=== PATIENT | male | born 1940 | race Caucasian/White ===

== ENCOUNTER 2017-11-11 11:25 | Emergency (ER) | payer MEDICARE, OTHER ==
[~2017-11-11] VITALS: Ht 182.9 cm; Wt 108.9 kg
[~2017-11-11 11:25] MED LIST: DIGO.25 PO; GABA100 PO; GEMF600 PO; HYDCHL25 PO; HYDCOR2.5C PR; LEVSOD50 PO; LISI20 PO; METO50ER PO; NIFE30ER PO; NIFE60ER PO; Norco 5-325 Ta1 EACH PO; OXYACE5T PO; TERA5 PO; WARF1 PO; WARF4 PO; WARF5 PO; WARF6 PO
[2017-11-11] MEDS ORDERED: GABA300 PO (12:15)
[2017-11-11] MEDS ORDERED: DIGOX250 MCG PO (12:15)
[2017-11-11] MEDS ORDERED: METO50 PO (12:15)
[2017-11-11] MEDS ORDERED: Zestril40 MG (12:15)
[2017-11-11] MEDS ORDERED: POTCHL20ER PO (12:15)
[2017-11-11] MEDS ORDERED: NIFE90ER PO (12:16)
[2017-11-11 12:38] LABS: International Normalized Ratio 1.84; Prothrombin Time Results 19.5 Sec (9.7-11.5)
== END 2017-11-11 13:10 | disposition home or self-care (01) ==
LOC: ER 11:25
PROVIDERS: Emergency Medicine
DX: S00.81XA Abrasion of other part of head, initial encounter (principal); D68.9 Coagulation defect, unspecified; M25.30 Other instability, unspecified joint; Z88.0 Allergy status to penicillin; Z88.8 Allergy status to other drugs, medicaments and biological substances; Z79.899 Other long term (current) drug therapy; Z79.01 Long term (current) use of anticoagulants; I10 Essential (primary) hypertension; Z87.891 Personal history of nicotine dependence; W01.118A Fall on same level from slipping, tripping and stumbling with subsequent striking against other sharp object, initial encounter
CPT/HCPCS: 70450; 85610; 90471; 90714; 99284

== ENCOUNTER 2018-12-15 15:15 | Emergency (ER) | payer MEDICARE, OTHER ==
[~2018-12-15] VITALS: Ht 182.9 cm; Wt 107.0 kg
[~2018-12-15 15:15] MED LIST changes: +DIGOX250 MCG PO; +GABA300 PO; +METO50 PO; +NIFE90ER PO; +POTCHL20ER PO; +Zestril40 MG
[2018-12-15 15:58] LABS: BASOPHILS ABSOLUTE AUTO 0.06 K/mm3 (0.00-0.23); BASOPHILS PERCENT AUTO 1 % (0-2); EOSINOPHILS ABSOLUTE AUTO 0.21 K/mm3 (0.00-0.68); EOSINOPHILS PERCENT AUTO 3 % (0-6); Hematocrit 39.2 % (37.0-53.0); IMMATURE GRAN ABSOLUTE AUTO 0.02 K/mm3 (0.00-0.10); IMMATURE GRAN PERCENT AUTO 0 % (0-1); LYMPHOCYTES ABSOLUTE AUTO 0.93 K/mm3 (0.84-5.20); LYMPHOCYTES PERCENT AUTO 12 % (21-46); MONOCYTES ABSOLUTE AUTO 0.75 K/mm3 (0.16-1.47); MONOCYTES PERCENT AUTO 10 % (4-13); Mean Corpuscular HGB Conc 33.2 g/dL (31.5-36.5); Mean Corpuscular Volume 90 fL (80-100); Mean Platelet Volume 9.1 fL (9.1-12.4); NEUTROPHILS ABSOLUTE AUTO 5.56 K/mm3 (1.96-9.15); NEUTROPHILS PERCENT AUTO 74 % (41-73); Platelet Count 200 K/mm3 (150-400); RDW Coefficient Variation 13.9 % (11.7-14.2); RDW Standard Deviation 45.5 fL (35.1-46.3); Red Blood Cell Count 4.34 M/mm3 (4.30-5.90); White Blood Cell Count 7.53 K/mm3 (4.00-11.30)
[2018-12-15 16:22] LABS: Alanine Aminotransfer (ALT/SGP 21 U/L (12-78); Albumin, Blood 3.6 g/dL (3.4-5.0); Alk Phos 86 U/L (50-136); Anion Gap 6 mmol/L (6-16); Aspartate Aminotrans (AST/SGOT 16 U/L (12-37); Bilirubin, Total 0.7 mg/dL (0.1-1.0); Blood Urea Nitrogen 14 mg/dL (8-24); Bun/Creatinine Ratio 13.6 (12.0-20.0); CO2, Blood 29 mmol/L (21-32); Chloride, Blood 107 mmol/L (98-108); Creatinine, Blood 1.03 mg/dL (0.60-1.20); Globulin, Blood 3.5 g/dL (2.2-4.0); Glomerular Filtration Rate >60 (60-); Glucose, Blood 111 mg/dL (70-99); Potassium, Blood 3.5 mmol/L (3.5-5.5); Sodium, Blood 142 mmol/L (136-145); Total Protein, Blood 7.1 g/dL (6.4-8.2)
[2018-12-15 16:37] LABS: Digoxin (Lanoxin) 0.88 ug/mL (0.80-2.00)
[2018-12-15 16:59] LABS: International Normalized Ratio 1.88; Prothrombin Time Results 18.8 Sec (9.7-11.5)
[2018-12-15] MEDS ORDERED: Prednisone20 MG PO (18:22)
== END 2018-12-15 18:40 | disposition home or self-care (01) ==
LOC: ER 15:15
PROVIDERS: Physician Assistant
DX: S50.812A Abrasion of left forearm, initial encounter (principal); M10.9 Gout, unspecified; I10 Essential (primary) hypertension; Z88.0 Allergy status to penicillin; Z79.899 Other long term (current) drug therapy; W01.0XXA Fall on same level from slipping, tripping and stumbling without subsequent striking against object, initial encounter
CPT/HCPCS: 29125; 70450; 73070; 73120; 80053; 80162; 85025; 85610; 93005; 93010; 99284-25; J7512

== ENCOUNTER → 2019-03-31 | Outpatient (CLI) | payer MEDICARE, OTHER ==
[~2019-03-31] MED LIST changes: +Prednisone20 MG PO
== END ==
LOC: LAB SHORT 11:04 → LAB 11:04
DX: L02.212 Cutaneous abscess of back [any part, except buttock and flank] (principal)
CPT/HCPCS: 87070; 87205

== ENCOUNTER 2020-10-22 00:33 | Day surgery (SDC) | payer MEDICARE, OTHER | END 2020-10-22 22:38 | disposition home or self-care (01) | LOC: WOUND 00:33 | DX: L97.812 Non-pressure chronic ulcer of other part of right lower leg with fat layer exposed (principal); L97.822 Non-pressure chronic ulcer of other part of left lower leg with fat layer exposed; I73.9 Peripheral vascular disease, unspecified; I87.2 Venous insufficiency (chronic) (peripheral); H40.9 Unspecified glaucoma; G47.30 Sleep apnea, unspecified; I48.91 Unspecified atrial fibrillation; I10 Essential (primary) hypertension; I25.2 Old myocardial infarction; E03.9 Hypothyroidism, unspecified; G62.9 Polyneuropathy, unspecified; Z87.891 Personal history of nicotine dependence; Z88.6 Allergy status to analgesic agent; Z88.1 Allergy status to other antibiotic agents; Z88.0 Allergy status to penicillin | CPT/HCPCS: A9270; G0463 ==

== ENCOUNTER 2020-10-30 00:19 | Day surgery (SDC) | payer MEDICARE, OTHER | END 2020-10-30 23:22 | disposition home or self-care (01) | LOC: WOUND 00:19 | DX: L97.829 Non-pressure chronic ulcer of other part of left lower leg with unspecified severity (principal); L97.818 Non-pressure chronic ulcer of other part of right lower leg with other specified severity; I73.9 Peripheral vascular disease, unspecified; I87.2 Venous insufficiency (chronic) (peripheral); R60.0 Localized edema | CPT/HCPCS: A9270; G0463 ==

== ENCOUNTER 2020-11-13 00:17 | Day surgery (SDC) | payer MEDICARE, OTHER | END 2020-11-13 22:41 | disposition home or self-care (01) | LOC: WOUND 00:17 | DX: L97.812 Non-pressure chronic ulcer of other part of right lower leg with fat layer exposed (principal); L97.822 Non-pressure chronic ulcer of other part of left lower leg with fat layer exposed; I73.9 Peripheral vascular disease, unspecified; I87.2 Venous insufficiency (chronic) (peripheral); R60.0 Localized edema | CPT/HCPCS: A9270 ==

== ENCOUNTER 2020-11-16 00:48 | Day surgery (SDC) | payer MEDICARE, OTHER | END 2020-11-16 23:01 | disposition home or self-care (01) | LOC: WOUND 00:48 | DX: L97.829 Non-pressure chronic ulcer of other part of left lower leg with unspecified severity (principal); L97.818 Non-pressure chronic ulcer of other part of right lower leg with other specified severity; I73.9 Peripheral vascular disease, unspecified; I87.2 Venous insufficiency (chronic) (peripheral); R60.0 Localized edema ==

== ENCOUNTER 2020-11-20 03:27 | Day surgery (SDC) | payer MEDICARE, OTHER | END 2020-11-20 23:03 | disposition home or self-care (01) | LOC: WOUND 03:27 | DX: L97.815 Non-pressure chronic ulcer of other part of right lower leg with muscle involvement without evidence of necrosis (principal); L97.829 Non-pressure chronic ulcer of other part of left lower leg with unspecified severity; I73.9 Peripheral vascular disease, unspecified; I87.2 Venous insufficiency (chronic) (peripheral); R60.0 Localized edema | CPT/HCPCS: A9270 ==

== ENCOUNTER 2020-11-27 02:59 | Day surgery (SDC) | payer MEDICARE, OTHER | END 2020-11-27 23:02 | disposition home or self-care (01) | LOC: WOUND 02:59 | DX: L97.822 Non-pressure chronic ulcer of other part of left lower leg with fat layer exposed (principal); L97.812 Non-pressure chronic ulcer of other part of right lower leg with fat layer exposed; I73.9 Peripheral vascular disease, unspecified; I87.2 Venous insufficiency (chronic) (peripheral); R60.0 Localized edema | CPT/HCPCS: A9270 ==

== ENCOUNTER 2020-12-04 04:48 | Day surgery (SDC) | payer MEDICARE, OTHER | END 2020-12-04 23:40 | disposition home or self-care (01) | LOC: WOUND 04:48 | DX: L97.815 Non-pressure chronic ulcer of other part of right lower leg with muscle involvement without evidence of necrosis (principal); L97.825 Non-pressure chronic ulcer of other part of left lower leg with muscle involvement without evidence of necrosis; L97.822 Non-pressure chronic ulcer of other part of left lower leg with fat layer exposed; I73.9 Peripheral vascular disease, unspecified; I87.2 Venous insufficiency (chronic) (peripheral); I77.1 Stricture of artery; R60.0 Localized edema; Z99.3 Dependence on wheelchair | CPT/HCPCS: A9270 ==

== ENCOUNTER 2020-12-11 02:15 | Day surgery (SDC) | payer MEDICARE, OTHER | END 2020-12-11 22:46 | disposition home or self-care (01) | LOC: WOUND 02:15 | DX: L97.212 Non-pressure chronic ulcer of right calf with fat layer exposed (principal); L97.222 Non-pressure chronic ulcer of left calf with fat layer exposed; I73.9 Peripheral vascular disease, unspecified; I87.2 Venous insufficiency (chronic) (peripheral); R60.0 Localized edema | CPT/HCPCS: A9270 ==

== ENCOUNTER 2020-12-18 00:22 | Day surgery (SDC) | payer MEDICARE, OTHER | END 2020-12-18 22:43 | disposition home or self-care (01) | LOC: WOUND 00:22 | DX: L97.212 Non-pressure chronic ulcer of right calf with fat layer exposed (principal); L97.222 Non-pressure chronic ulcer of left calf with fat layer exposed; I73.9 Peripheral vascular disease, unspecified; I87.2 Venous insufficiency (chronic) (peripheral); R60.0 Localized edema | CPT/HCPCS: A9270 ==

== ENCOUNTER 2020-12-25 04:39 | Day surgery (SDC) | payer MEDICARE, OTHER | END 2020-12-25 22:59 | disposition home or self-care (01) | LOC: WOUND 04:39 | DX: L97.222 Non-pressure chronic ulcer of left calf with fat layer exposed (principal); L97.212 Non-pressure chronic ulcer of right calf with fat layer exposed; I73.9 Peripheral vascular disease, unspecified; I87.2 Venous insufficiency (chronic) (peripheral); R60.0 Localized edema ==

== ENCOUNTER 2021-01-01 03:37 | Day surgery (SDC) | payer MEDICARE, OTHER | END 2021-01-01 23:45 | disposition home or self-care (01) | LOC: WOUND 03:37 | DX: L97.212 Non-pressure chronic ulcer of right calf with fat layer exposed (principal); L97.222 Non-pressure chronic ulcer of left calf with fat layer exposed; I87.2 Venous insufficiency (chronic) (peripheral); I73.9 Peripheral vascular disease, unspecified; R60.0 Localized edema ==

== ENCOUNTER 2021-01-08 04:18 | Day surgery (SDC) | payer MEDICARE, OTHER | END 2021-01-08 22:46 | disposition home or self-care (01) | LOC: WOUND 04:18 | DX: L97.825 Non-pressure chronic ulcer of other part of left lower leg with muscle involvement without evidence of necrosis (principal); L97.815 Non-pressure chronic ulcer of other part of right lower leg with muscle involvement without evidence of necrosis; L97.222 Non-pressure chronic ulcer of left calf with fat layer exposed; L97.212 Non-pressure chronic ulcer of right calf with fat layer exposed; I73.9 Peripheral vascular disease, unspecified; I87.2 Venous insufficiency (chronic) (peripheral); R60.0 Localized edema ==

== ENCOUNTER 2021-01-15 00:59 | Day surgery (SDC) | payer MEDICARE, OTHER | END 2021-01-15 23:26 | disposition home or self-care (01) | LOC: WOUND 00:59 | DX: L97.212 Non-pressure chronic ulcer of right calf with fat layer exposed (principal); L97.222 Non-pressure chronic ulcer of left calf with fat layer exposed; I73.9 Peripheral vascular disease, unspecified; I87.2 Venous insufficiency (chronic) (peripheral); R60.0 Localized edema | CPT/HCPCS: A9270 ==

== ENCOUNTER 2021-01-22 04:10 | Day surgery (SDC) | payer MEDICARE, OTHER | END 2021-01-22 23:51 | disposition home or self-care (01) | LOC: WOUND 04:10 | DX: L97.212 Non-pressure chronic ulcer of right calf with fat layer exposed (principal); L97.222 Non-pressure chronic ulcer of left calf with fat layer exposed; I73.9 Peripheral vascular disease, unspecified; I87.2 Venous insufficiency (chronic) (peripheral); R60.0 Localized edema ==

== ENCOUNTER 2021-01-30 01:29 | Day surgery (SDC) | payer MEDICARE, OTHER ==
[~2021-01-30 01:29] MED LIST changes: -GABA300 PO; -HYDCHL25 PO; -LEVSOD50 PO; -METO50 PO; -NIFE90ER PO; -POTCHL20ER PO; -TERA5 PO; -Zestril40 MG
== END 2021-01-30 22:41 | disposition home or self-care (01) ==
LOC: WOUND 01:29
DX: L97.212 Non-pressure chronic ulcer of right calf with fat layer exposed (principal); L97.222 Non-pressure chronic ulcer of left calf with fat layer exposed; I73.9 Peripheral vascular disease, unspecified; I87.2 Venous insufficiency (chronic) (peripheral); R60.0 Localized edema
CPT/HCPCS: A9270

== ENCOUNTER 2021-02-07 12:12 | Inpatient (IN) | payer MEDICARE, OTHER ==
[~2021-02-07] VITALS: Ht 180.3 cm; Wt 102.5 kg
[2021-02-07 13:20] LABS: BASOPHILS ABSOLUTE AUTO 0.05 K/mm3 (0.00-0.23); BASOPHILS PERCENT AUTO 2 % (0-2); EOSINOPHILS ABSOLUTE AUTO 0.09 K/mm3 (0.00-0.68); EOSINOPHILS PERCENT AUTO 3 % (0-6); Hematocrit 33.1 % (37.0-53.0); Hemoglobin 9.9 g/dL (13.5-17.5); IMMATURE GRAN PERCENT AUTO 0 % (0-1); LYMPHOCYTES ABSOLUTE AUTO 0.58 K/mm3 (0.84-5.20); LYMPHOCYTES PERCENT AUTO 20 % (21-46); MONOCYTES ABSOLUTE AUTO 0.35 K/mm3 (0.16-1.47); MONOCYTES PERCENT AUTO 12 % (4-13); Mean Corpuscular HGB 24.4 pg (26.0-34.0); Mean Corpuscular HGB Conc 29.9 g/dL (31.5-36.5); Mean Corpuscular Volume 82 fL (80-100); Mean Platelet Volume 9.5 fL (9.1-12.4); NEUTROPHILS ABSOLUTE AUTO 1.82 K/mm3 (1.96-9.15); NEUTROPHILS PERCENT AUTO 63 % (41-73); Platelet Count 125 K/mm3 (150-400); RDW Coefficient Variation 18.5 % (11.7-14.2); RDW Standard Deviation 54.3 fL (35.1-46.3); Red Blood Cell Count 4.05 M/mm3 (4.30-5.90); White Blood Cell Count 2.89 K/mm3 (4.00-11.30)
[2021-02-07 13:43] LABS: International Normalized Ratio 2.69; Prothrombin Time Results 27.5 Sec (9.7-11.5)
[2021-02-07 13:47] LABS: Alanine Aminotransfer (ALT/SGP 21 U/L (12-78); Albumin/Globulin Ratio 0.8 (0.8-1.8); Alk Phos 120 U/L (50-136); Anion Gap 4 mmol/L (6-16); Aspartate Aminotrans (AST/SGOT 16 U/L (12-37); Bilirubin, Total 0.6 mg/dL (0.1-1.0); Blood Urea Nitrogen 12 mg/dL (8-24); Bun/Creatinine Ratio 12.9 (12.0-20.0); CO2, Blood 34 mmol/L (21-32); Calcium, Blood 8.5 mg/dL (8.5-10.1); Chloride, Blood 103 mmol/L (98-108); Creatinine, Blood 0.93 mg/dL (0.60-1.20); Globulin, Blood 3.7 g/dL (2.2-4.0); Glomerular Filtration Rate >60 (60-); Glucose, Blood 98 mg/dL (70-99); Potassium, Blood 3.7 mmol/L (3.5-5.5); Sodium, Blood 141 mmol/L (136-145); Total Protein, Blood 6.7 g/dL (6.4-8.2); Troponin I <0.015 ng/mL (0.000-0.040)
[2021-02-07 14:13] LABS: SARS-Cov-2 (COVID-19) PCR, MMC NEGATIVE (NEGATIVE)
[2021-02-07] MEDS ORDERED: POTCHL20ER PO (14:23)
[2021-02-07] MEDS ORDERED: WARF6 PO (14:23)
[2021-02-07] MEDS ORDERED: NIFE90ER PO (14:24)
[2021-02-07] MEDS ORDERED: GABA300 PO (14:24)
[2021-02-07] MEDS ORDERED: TERA5 PO (14:24)
[2021-02-07] MEDS ORDERED: METO50 PO (14:25)
[2021-02-07] MEDS ORDERED: HYDCHL25 PO (14:25)
[2021-02-07] MEDS ORDERED: LISI20 PO (14:26)
[2021-02-07] MEDS ORDERED: EUTHYROX50 MCG PO (14:26)
[2021-02-07] MEDS ORDERED: DIGOX250 MCG PO (17:47)
--- NOTE | 2021-02-07 18:43 | NUR ---
PATIENT IS ALERT AND ORIENTED. HE WAS ADMITTED AT 1630. WHEELCHAIR AT BASELINE, CAN STAND AND PIVOT WITH SBA. UP IN RECLINER. HE SLEEPS IN A RECLINER AT HOME. ON 3L O2 VIA NC. RA AT BASELINE. WOUNDS BLE, NO PICTURES ON CHART. EXERTIONAL SOB. WILL CONTINUE TO MONITOR
--- NOTE | 2021-02-08 05:58 | NUR ---
SHIFT SUMMARY NO ACUTE CHANGES THIS SHIFT, MEDICATED FOR BLE PAIN & C/O COUGH THIS AM, UP MULTIPLE TIMES FOR URINAL ASSISTANCE @ BEDSIDE, BEDRESTING AT THIS TIME, CALL LIGHT IN REACH, WILL CONT TO MONITOR UNTIL REPORT GIVEN TO DAY RN.
[2021-02-08 05:59] LABS: BASOPHILS ABSOLUTE AUTO 0.05 K/mm3 (0.00-0.23); BASOPHILS PERCENT AUTO 1 % (0-2); EOSINOPHILS ABSOLUTE AUTO 0.11 K/mm3 (0.00-0.68); EOSINOPHILS PERCENT AUTO 3 % (0-6); Hematocrit 32.5 % (37.0-53.0); Hemoglobin 9.8 g/dL (13.5-17.5); IMMATURE GRAN ABSOLUTE AUTO 0.01 K/mm3 (0.00-0.10); IMMATURE GRAN PERCENT AUTO 0 % (0-1); LYMPHOCYTES ABSOLUTE AUTO 0.63 K/mm3 (0.84-5.20); LYMPHOCYTES PERCENT AUTO 18 % (21-46); MONOCYTES ABSOLUTE AUTO 0.42 K/mm3 (0.16-1.47); MONOCYTES PERCENT AUTO 12 % (4-13); Mean Corpuscular HGB 24.3 pg (26.0-34.0); Mean Corpuscular HGB Conc 30.2 g/dL (31.5-36.5); Mean Corpuscular Volume 81 fL (80-100); Mean Platelet Volume 9.5 fL (9.1-12.4); NEUTROPHILS ABSOLUTE AUTO 2.25 K/mm3 (1.96-9.15); NEUTROPHILS PERCENT AUTO 65 % (41-73); Platelet Count 130 K/mm3 (150-400); RDW Coefficient Variation 18.6 % (11.7-14.2); RDW Standard Deviation 54.2 fL (35.1-46.3); Red Blood Cell Count 4.03 M/mm3 (4.30-5.90); White Blood Cell Count 3.47 K/mm3 (4.00-11.30)
[2021-02-08 06:03] LABS: International Normalized Ratio 3.03; Prothrombin Time Results 30.7 Sec (9.7-11.5)
[2021-02-08 06:31] LABS: Anion Gap 3 mmol/L (6-16); Blood Urea Nitrogen 17 mg/dL (8-24); Bun/Creatinine Ratio 17.5 (12.0-20.0); CO2, Blood 34 mmol/L (21-32); Calcium, Blood 8.6 mg/dL (8.5-10.1); Chloride, Blood 105 mmol/L (98-108); Creatinine, Blood 0.97 mg/dL (0.60-1.20); Glomerular Filtration Rate >60 (60-); Glucose, Blood 85 mg/dL (70-99); Potassium, Blood 3.4 mmol/L (3.5-5.5); Sodium, Blood 142 mmol/L (136-145)
--- NOTE | 2021-02-08 11:44 | NUR ---
PATIENT IS SEEN IN THE [facility] FOR WOUND HEALING ONCE A WEEK. HE WAS LAST SEEN ON 02/05/21. AT THAT TIME, PHOTOS OF HIS WOUNDS WERE TAKEN AND HIS WOUNDS WERE CLEANED AND DRESSED ACCORDING TO ORDERS. HIS WOUND CARE ORDERS CALL FOR HIS WOUNDS TO BE DRESSED ONCE A WEEK ON THURSDAY AT THE WOUND CLINIC. THIS RN SPOKE WITH [employer] IN [facility] ABOUT THIS PATIENTS WOUND AND ORDERS. THERE ARE WOUND CARE ORDERS ON THE PATIENT'S PAPER CHART. K[employer] SAID THAT IF THE PATIENT IS STILL HERE ON Thursday02/12/21 TO HAVE A WOUND CARE CONSULT PLACED AND THE WOUND CLINIC WILL ASSIST IN THE WOUND CARE WHILE THE PATIENT IS ADMITTED TO THE HOSPITAL. NO PICTURES OF THE PATIENT WOUNDS WERE TAKEN UPON HIS ADMIT SINCE THE WOUND CLINIC HAS RECENT PHOTOS.
--- NOTE | 2021-02-08 18:09 | NUR ---
PATIENT IS ALERT AND ORIENTED AND COOPERATIVE WITH CARE. DR. LÓPEZ PERFORMED A JETHRO ON THE PATIENT THIS AFTERNOON. THE PATIENT HAS BEEN ABLE TO TOLERATE DRINKING WATER AND EATING JELLO SINCE THE JETHRO. HE WAS UP IN THE RECLINER FOR MOST OF THE DAY. HE IS INDEPENDENT WITH THE URINAL. NO C/O PAIN. WILL CONTINUE TO MONITOR
--- NOTE | 2021-02-09 04:23 | NUR ---
night patrol inspector summary pt a/o x4, slept well tonight. continues to be on 4L o2 via nc satting in the mid to high 90's. uses urinal with assistance at bedside. bilateral leg wound dressing c.d.i. no acute changes. call light within reach, bed alarm on, will continue to monitor.
[2021-02-09 05:55] LABS: Anion Gap 5 mmol/L (6-16); Blood Urea Nitrogen 17 mg/dL (8-24); Bun/Creatinine Ratio 18.1 (12.0-20.0); CO2, Blood 34 mmol/L (21-32); Calcium, Blood 8.2 mg/dL (8.5-10.1); Chloride, Blood 103 mmol/L (98-108); Creatinine, Blood 0.94 mg/dL (0.60-1.20); Glomerular Filtration Rate >60 (60-); Glucose, Blood 83 mg/dL (70-99); Magnesium, Blood 2.1 mg/dL (1.6-2.4); Potassium, Blood 3.1 mmol/L (3.5-5.5); Sodium, Blood 142 mmol/L (136-145)
[2021-02-09 06:04] LABS: Prothrombin Time Results 30.4 Sec (9.7-11.5)
--- NOTE | 2021-02-09 16:38 | NUR ---
PATIENT HAS BEEN IRRITABLE WITH STAFF TODAY REGARDING HIS CHF AND THE NEW CONDITIONS THAT IT POSES ON HIM SUCH LOW SODIUM INTAKE AND A FLUID RESTRICTION; BOTH I AND DR COLIN SPENT TIME WITH THE PATIENT EXPLAINING THE REASONING BEHIND THE RESTICTIONS AND I ALSO PROVIDED HIM EDUCATIONAL PRINT-OUTS TO READ. THE PATIENT APPARENTLY LOVES HIS FOOD AND FLUIDS AND DOESN'T LIKE EITHER OF THEM TO BE MESSED WITH. I HAVE ALSO BEGUN TO TITRATE DOWN HIS OXYGEN AND HE IS DOING WELL ON 2L NC; I TRIED GOING TO 1L BUT HE DIDN'T SEEM TO MAINTAIN HIS SATS AT THAT RATE QUITE YET. PATIENTS BP HAS BEEN ELEVATED TODAY HOWEVER HE CONTINUES TO TAKE HIS SCHEDULED ANTI-HYPERTENSIVES PER EMAR. PATIENT MARILYNNLT SITTING UPRIGHT IN BEDSIDE CHAIR. HE CALLS APPROPRIATELY FOR STAFF ASSIST NEEDED. CALL LIGHT WITHIN REACH.
--- NOTE | 2021-02-09 18:57 | NUR ---
PATIENT HAD ACCIDENTLY SPILT HIS URINE ON HIS DRESSING TO HIS RLE; THIS IS A DRESSING THAT THE WOUND CLINIC CHANGES AND THAT WE DO NOT HAVE SUPPLIES FOR. I CALLED DR MORENO TO SEE WHAT SHE WANTED ME TO DO ABOUT THE WET DRESSING. SHE TOLD ME TO REPLACE THE DRESSING WITH SIMILAR SUPPLIES USING WHATEVER WE HAD ON THE FLOOR.
--- NOTE | 2021-02-09 19:10 | NUR ---
ASSUMED CARE RECEIVED REPORT FROM KIRK ACOSTA. PT RESTING, IN NAD. NO ACUTE NEEDS ASSESSED AT THIS TIME. CALL LIGHT, POSSESSIONS IN REACH, BED IN LOW AND LOCKED POSITION WITH ALARMS ON.
--- NOTE | 2021-02-10 02:30 | NUR ---
THIS RN NOTIFIED BY DIRECTOR OF REGULATORY AFFAIRS OF PT'S 11 BEAT RUN OF VTACH. PT ASYMPTOMATIC, ASLEEP SOUNDLY. WCTM.
[2021-02-10 05:46] LABS: International Normalized Ratio 2.33
[2021-02-10 05:51] LABS: Anion Gap 1 mmol/L (6-16); Blood Urea Nitrogen 22 mg/dL (8-24); Bun/Creatinine Ratio 21.8 (12.0-20.0); CO2, Blood 39 mmol/L (21-32); Calcium, Blood 8.6 mg/dL (8.5-10.1); Chloride, Blood 101 mmol/L (98-108); Creatinine, Blood 1.01 mg/dL (0.60-1.20); Glomerular Filtration Rate >60 (60-); Glucose, Blood 85 mg/dL (70-99); Magnesium, Blood 2.1 mg/dL (1.6-2.4); Potassium, Blood 3.2 mmol/L (3.5-5.5); Sodium, Blood 141 mmol/L (136-145)
--- NOTE | 2021-02-10 06:59 | NUR ---
PATIENT CARE COORDINATOR SUMMARY PT RESTING, IN NAD. APPEARED TO SLEEP T/O MUCH OF THE NIGHT. NO FURTHER CARDIAC EVENTS REPORTED, PT DENIES CP/PRESSURE/SOB. VS REVIEWED,WNL; O2 SATS WNL ON 2-3L/NC. DRSGS TO BLE C/D/I, BLACK SOCKS APPLIED THIS AM. MEDICATED FOR C/O PAIN X1 WITH GOOD RELIEF. NO ACUTE NEEDS ASSESSED AT THIS TIME. CALL LIGHT, POSSESSIONS IN REACH, BED IN LOW AND LOCKED POSITION WITH ALARMS ON. REPORT GIVEN TO KIRK ACOSTA.
--- NOTE | 2021-02-10 07:48 | NUR ---
I ADMINISTERED THE PATIENTS MEDICATIONS EARLY THIS MORNING DUE TO SUPER ELEVATED BP.
[2021-02-10] MEDS ORDERED: BUME2 PO (13:54)
[2021-02-10] MEDS ORDERED: SPIR25 PO (13:55)
--- NOTE | 2021-02-10 14:23 | NUR ---
DISCHARGE INSTRUCTIONS REVIEWED WITH THE PATIENT. ALL QUESTIONS ANSWERED. IV AND TELE REMOVED. PATIENT IN ROOM PREPARING FOR DISCHARGE HOME. PATIENT TO DISCHAR[facility]; RIDE TO BE ARRANGED. HOME O2 EVAL PERFORMED AND NO O2 NEEDED PER RT.
--- NOTE | 2021-02-10 16:54 | NUR ---
PATIENT WAS PICKED UP AT 1645 AND DISCHARGED HOME VIA STRETCHER BY [facility].
== END 2021-02-10 17:59 | disposition home or self-care (01) | DRG 291 ==
LOC: ER 12:12 → MEDS 15:18
PROVIDERS: Family Medicine; Nurse Practitioner Acute Care; Physician Assistant; ADMIT Internal Medicine
PROC: 2W1QX6Z Compression of Right Lower Leg using Pressure Dressing (ICD-10-PCS; principal; 2021-02-05)
DX: I11.0 Hypertensive heart disease with heart failure (principal); J96.01 Acute respiratory failure with hypoxia; I48.19 Other persistent atrial fibrillation; I50.33 Acute on chronic diastolic (congestive) heart failure; Z20.822 Contact with and (suspected) exposure to COVID-19; E03.9 Hypothyroidism, unspecified; N40.0 Benign prostatic hyperplasia without lower urinary tract symptoms; E66.01 Morbid (severe) obesity due to excess calories; I27.22 Pulmonary hypertension due to left heart disease; I87.2 Venous insufficiency (chronic) (peripheral); G62.9 Polyneuropathy, unspecified; I34.0 Nonrheumatic mitral (valve) insufficiency; E87.6 Hypokalemia; Z68.30 Body mass index [BMI] 30.0-30.9, adult; Z87.891 Personal history of nicotine dependence; Z79.899 Other long term (current) drug therapy; Z79.01 Long term (current) use of anticoagulants; Z88.8 Allergy status to other drugs, medicaments and biological substances; Z88.0 Allergy status to penicillin; Z88.1 Allergy status to other antibiotic agents
CPT/HCPCS: 36415; 71045; 80048; 80053; 83735; 83880; 84484; 85025; 85610; 93005; 93010; 93308; 93312; 93321; 93325; 94660; 96374; 99152; 99153; 99285-25; A9270; J2250; J2310; J3010; J3480; J7030; U0004

== ENCOUNTER 2021-02-11 22:19 | Observation (INO) | payer MEDICARE, OTHER ==
[~2021-02-11] VITALS: Ht 182.9 cm; Wt 100.1 kg
[~2021-02-11 22:19] MED LIST changes: +BUME2 PO; +EUTHYROX50 MCG PO; +GABA300 PO; +HYDCHL25 PO; +METO50 PO; +NIFE90ER PO; +POTCHL20ER PO; +SPIR25 PO; +TERA5 PO
[2021-02-11 22:54] LABS: BASOPHILS ABSOLUTE AUTO 0.05 K/mm3 (0.00-0.23); BASOPHILS PERCENT AUTO 2 % (0-2); EOSINOPHILS ABSOLUTE AUTO 0.12 K/mm3 (0.00-0.68); EOSINOPHILS PERCENT AUTO 4 % (0-6); Hematocrit 30.3 % (37.0-53.0); Hemoglobin 9.3 g/dL (13.5-17.5); IMMATURE GRAN PERCENT AUTO 0 % (0-1); LYMPHOCYTES PERCENT AUTO 19 % (21-46); MONOCYTES ABSOLUTE AUTO 0.47 K/mm3 (0.16-1.47); MONOCYTES PERCENT AUTO 15 % (4-13); Mean Corpuscular HGB 24.7 pg (26.0-34.0); Mean Corpuscular HGB Conc 30.7 g/dL (31.5-36.5); Mean Corpuscular Volume 80 fL (80-100); Mean Platelet Volume 9.2 fL (9.1-12.4); NEUTROPHILS ABSOLUTE AUTO 1.97 K/mm3 (1.96-9.15); NEUTROPHILS PERCENT AUTO 61 % (41-73); Platelet Count 119 K/mm3 (150-400); RDW Coefficient Variation 18.6 % (11.7-14.2); RDW Standard Deviation 54.4 fL (35.1-46.3); Red Blood Cell Count 3.77 M/mm3 (4.30-5.90); White Blood Cell Count 3.21 K/mm3 (4.00-11.30)
[2021-02-11 23:13] LABS: Alanine Aminotransfer (ALT/SGP 22 U/L (12-78); Albumin, Blood 2.9 g/dL (3.4-5.0); Albumin/Globulin Ratio 0.9 (0.8-1.8); Alk Phos 106 U/L (50-136); Anion Gap 1 mmol/L (6-16); Aspartate Aminotrans (AST/SGOT 24 U/L (12-37); Bilirubin, Total 0.5 mg/dL (0.1-1.0); Blood Urea Nitrogen 23 mg/dL (8-24); Bun/Creatinine Ratio 20.7 (12.0-20.0); CO2, Blood 38 mmol/L (21-32); Calcium, Blood 8.7 mg/dL (8.5-10.1); Chloride, Blood 101 mmol/L (98-108); Creatinine, Blood 1.11 mg/dL (0.60-1.20); Globulin, Blood 3.4 g/dL (2.2-4.0); Glomerular Filtration Rate >60 (60-); Glucose, Blood 99 mg/dL (70-99); Potassium, Blood 3.8 mmol/L (3.5-5.5); Sodium, Blood 140 mmol/L (136-145); Total Protein, Blood 6.3 g/dL (6.4-8.2); Troponin I <0.015 ng/mL (0.000-0.040)
[2021-02-11 23:51] LABS: Digoxin (Lanoxin) 0.09 ug/mL (0.80-2.00)
[2021-02-11 23:59] LABS: International Normalized Ratio 1.76; Prothrombin Time Results 18.4 Sec (9.7-11.5)
--- NOTE | 2021-02-12 04:13 | NUR ---
SHIFT SUMMARY ED ADMIT AT APPROX 0315. A/OX3, FORGETFUL AT TIMES. COOPERATIVE WITH CARE. CURRENTLY ON 3L VIA NC, PT REPORTS BEING WHEELCHAIR BOUND AT BASELINE. ABLE TO MAKE NEEDS KNOWN. UP TO EDGE OF BED TO USE URINAL. VSS, NO ACUTE NEEDS AT THIS TIME. BED IN LOWEST POSITION WITH CALL LIGHT IN REACH. WILL CONTINUE TO MONITOR AND REPORT TO ONCOMING RN.
[2021-02-12 09:52] LABS: International Normalized Ratio 1.66; Prothrombin Time Results 17.4 Sec (9.7-11.5)
--- NOTE | 2021-02-12 13:16 | NUR ---
WOUND CARE NOTES- BLE CLEANSED WITH NS, PAT DRY WITH GAUZE, CALCIUM ALGINATE PLACED TO WOUND BEDS, COVERED WITH OPTILOCK. BLE WRAPPED WITH COBAN LITE COMPRESSION WRAPS. PT INSTUCTED TO FOLLOW UP IN WC NEXT THURSDAY FOR REGULAR SCHEDULED TREATMENTS
--- NOTE | 2021-02-12 18:36 | NUR ---
SHIFT SUMMARY PT TO DISCHARGE AT 1900 VIA W/C BY [facility]. HAS QUALIFIED FOR OXYGEN. HAS BEEN ON PHONE SEVERAL TIMES WITH AND APPEARS UPSET WHILE ON PHONE. STATES WHATEVER I CAN DO TO MAKE HER HAPPY I WILL. OFFERED TO CALL AND INSTRUCT TO ASSIST HIM BUT HE DECLINED. NO RESP DISTRESS NOTED. DID WALK A SHORT DISTANCE WITH P.T. THIS MORNING. WOUND CLINIC HERE AT LUNCHTIME AND CHANGED HIS WEEKLY DRESSINGS TO LEGS. WILL PROVIDE DISCHARGE INSTRUCTIONS PRIOR TO LEAVING.
--- NOTE | 2021-02-12 19:11 | NUR ---
DISCHARGE INSTRUCTIONS COMPLETED AND DISCUSSED WITH PT EXPRESSING UNDERSTANDING. [facility]. PT REPORTS [facility] ALREADY OUT TO DELIVER EQUIPMENT TO HOME. TO [facility]IA [facility] W/C.
== END 2021-02-12 19:07 | disposition home or self-care (01) ==
LOC: ER 22:19 → MEDS 22:20 → ER 02-12 00:13 → MEDS 02-12 03:19 → ER 02-12 03:37 → MEDS 02-12 03:37
PROVIDERS: Emergency Medicine; Family Medicine; ADMIT Internal Medicine
DX: J96.01 Acute respiratory failure with hypoxia (principal); I11.0 Hypertensive heart disease with heart failure; I50.33 Acute on chronic diastolic (congestive) heart failure; G62.9 Polyneuropathy, unspecified; E03.9 Hypothyroidism, unspecified; N40.0 Benign prostatic hyperplasia without lower urinary tract symptoms; E66.01 Morbid (severe) obesity due to excess calories; I27.20 Pulmonary hypertension, unspecified; I48.20 Chronic atrial fibrillation, unspecified; I87.2 Venous insufficiency (chronic) (peripheral); S81.802A Unspecified open wound, left lower leg, initial encounter; S81.801A Unspecified open wound, right lower leg, initial encounter; X58.XXXA Exposure to other specified factors, initial encounter; Z88.8 Allergy status to other drugs, medicaments and biological substances; Z88.0 Allergy status to penicillin; Z79.01 Long term (current) use of anticoagulants; Z87.891 Personal history of nicotine dependence; Z68.30 Body mass index [BMI] 30.0-30.9, adult
CPT/HCPCS: 36415; 71045; 80053; 80162; 83880; 84145; 84484; 85025; 85610; 93005; 93010; 94761; 96374; 97116; 97162; 97530; 99285-25; A9270; G0378

== ENCOUNTER 2021-02-19 02:10 | Day surgery (SDC) | payer MEDICARE, OTHER | END 2021-02-19 23:00 | disposition home or self-care (01) | LOC: WOUND 02:10 | DX: L97.212 Non-pressure chronic ulcer of right calf with fat layer exposed (principal); L97.222 Non-pressure chronic ulcer of left calf with fat layer exposed; L97.812 Non-pressure chronic ulcer of other part of right lower leg with fat layer exposed; I73.9 Peripheral vascular disease, unspecified; I87.2 Venous insufficiency (chronic) (peripheral); R60.0 Localized edema | CPT/HCPCS: A9270 ==

== ENCOUNTER 2021-02-26 00:41 | Day surgery (SDC) | payer MEDICARE, OTHER | END 2021-02-26 22:38 | disposition home or self-care (01) | LOC: WOUND 00:41 | DX: L97.812 Non-pressure chronic ulcer of other part of right lower leg with fat layer exposed (principal); L97.822 Non-pressure chronic ulcer of other part of left lower leg with fat layer exposed; I73.9 Peripheral vascular disease, unspecified; I87.2 Venous insufficiency (chronic) (peripheral) ==

== ENCOUNTER 2021-03-05 01:54 | Day surgery (SDC) | payer MEDICARE, OTHER | END 2021-03-05 22:58 | disposition home or self-care (01) | LOC: WOUND 01:54 | DX: L97.212 Non-pressure chronic ulcer of right calf with fat layer exposed (principal); L97.222 Non-pressure chronic ulcer of left calf with fat layer exposed; I73.9 Peripheral vascular disease, unspecified; I87.2 Venous insufficiency (chronic) (peripheral); R60.0 Localized edema | CPT/HCPCS: A9270 ==

== ENCOUNTER 2021-03-12 02:46 | Day surgery (SDC) | payer MEDICARE, OTHER | END 2021-03-12 22:56 | disposition home or self-care (01) | LOC: WOUND 02:46 | DX: L97.212 Non-pressure chronic ulcer of right calf with fat layer exposed (principal); L97.812 Non-pressure chronic ulcer of other part of right lower leg with fat layer exposed; I73.9 Peripheral vascular disease, unspecified; I87.2 Venous insufficiency (chronic) (peripheral); R60.0 Localized edema; Z88.0 Allergy status to penicillin; Z88.8 Allergy status to other drugs, medicaments and biological substances | CPT/HCPCS: A9270 ==

== ENCOUNTER 2021-03-15 12:22 | Emergency (ER) | payer MEDICARE, OTHER ==
[~2021-03-15] VITALS: Ht 182.9 cm; Wt 94.3 kg
[2021-03-15 13:47] LABS: BASOPHILS ABSOLUTE AUTO 0.05 K/mm3 (0.00-0.23); BASOPHILS PERCENT AUTO 1 % (0-2); EOSINOPHILS ABSOLUTE AUTO 0.53 K/mm3 (0.00-0.68); EOSINOPHILS PERCENT AUTO 14 % (0-6); Hematocrit 34.1 % (37.0-53.0); Hemoglobin 10.7 g/dL (13.5-17.5); IMMATURE GRAN ABSOLUTE AUTO 0.01 K/mm3 (0.00-0.10); IMMATURE GRAN PERCENT AUTO 0 % (0-1); LYMPHOCYTES ABSOLUTE AUTO 0.84 K/mm3 (0.84-5.20); LYMPHOCYTES PERCENT AUTO 23 % (21-46); MONOCYTES ABSOLUTE AUTO 0.44 K/mm3 (0.16-1.47); MONOCYTES PERCENT AUTO 12 % (4-13); Mean Corpuscular HGB 25.5 pg (26.0-34.0); Mean Corpuscular HGB Conc 31.4 g/dL (31.5-36.5); Mean Corpuscular Volume 81 fL (80-100); Mean Platelet Volume 9.9 fL (9.1-12.4); NEUTROPHILS ABSOLUTE AUTO 1.87 K/mm3 (1.96-9.15); NEUTROPHILS PERCENT AUTO 50 % (41-73); Platelet Count 113 K/mm3 (150-400); RDW Coefficient Variation 19.9 % (11.7-14.2); RDW Standard Deviation 58.9 fL (35.1-46.3); White Blood Cell Count 3.74 K/mm3 (4.00-11.30)
[2021-03-15 13:56] LABS: Alanine Aminotransfer (ALT/SGP 25 U/L (12-78); Albumin, Blood 3.6 g/dL (3.4-5.0); Albumin/Globulin Ratio 0.9 (0.8-1.8); Alk Phos 117 U/L (50-136); Anion Gap 1 mmol/L (6-16); Aspartate Aminotrans (AST/SGOT 24 U/L (12-37); Bilirubin, Total 0.7 mg/dL (0.1-1.0); Blood Urea Nitrogen 25 mg/dL (8-24); CO2, Blood 32 mmol/L (21-32); Calcium, Blood 8.8 mg/dL (8.5-10.1); Chloride, Blood 105 mmol/L (98-108); Creatinine, Blood 1.04 mg/dL (0.60-1.20); Globulin, Blood 3.9 g/dL (2.2-4.0); Glomerular Filtration Rate >60 (60-); Glucose, Blood 88 mg/dL (70-99); Potassium, Blood 4.1 mmol/L (3.5-5.5); Sodium, Blood 138 mmol/L (136-145); Total Protein, Blood 7.5 g/dL (6.4-8.2)
[2021-03-15 13:58] LABS: International Normalized Ratio 1.77; Prothrombin Time Results 18.5 Sec (9.7-11.5)
== END 2021-03-15 17:04 | disposition home or self-care (01) ==
LOC: ER 12:22
PROVIDERS: Physician Assistant
DX: S81.802D Unspecified open wound, left lower leg, subsequent encounter (principal); I11.0 Hypertensive heart disease with heart failure; I50.32 Chronic diastolic (congestive) heart failure; E03.9 Hypothyroidism, unspecified; I48.91 Unspecified atrial fibrillation; N40.0 Benign prostatic hyperplasia without lower urinary tract symptoms; E66.01 Morbid (severe) obesity due to excess calories; Z88.6 Allergy status to analgesic agent; Z88.0 Allergy status to penicillin; Z88.8 Allergy status to other drugs, medicaments and biological substances; Z79.899 Other long term (current) drug therapy; Z79.01 Long term (current) use of anticoagulants; Z99.81 Dependence on supplemental oxygen; Z87.891 Personal history of nicotine dependence; Z68.28 Body mass index [BMI] 28.0-28.9, adult
CPT/HCPCS: 36415; 80053; 85025; 85610; 99283

== ENCOUNTER 2021-03-19 02:14 | Day surgery (SDC) | payer MEDICARE, OTHER | END 2021-03-19 22:38 | disposition home or self-care (01) | LOC: WOUND 02:14 | DX: L97.212 Non-pressure chronic ulcer of right calf with fat layer exposed (principal); L97.211 Non-pressure chronic ulcer of right calf limited to breakdown of skin; L97.229 Non-pressure chronic ulcer of left calf with unspecified severity; I87.2 Venous insufficiency (chronic) (peripheral); I73.9 Peripheral vascular disease, unspecified; R60.0 Localized edema ==

== ENCOUNTER 2021-03-29 04:35 | Day surgery (SDC) | payer MEDICARE, OTHER | END 2021-03-29 23:09 | disposition home or self-care (01) | LOC: WOUND 04:35 | DX: L97.212 Non-pressure chronic ulcer of right calf with fat layer exposed (principal); I73.9 Peripheral vascular disease, unspecified; I87.2 Venous insufficiency (chronic) (peripheral); R60.0 Localized edema ==

== ENCOUNTER 2021-04-02 02:47 | Day surgery (SDC) | payer MEDICARE, OTHER | END 2021-04-02 22:41 | disposition home or self-care (01) | LOC: WOUND 02:47 | DX: L97.212 Non-pressure chronic ulcer of right calf with fat layer exposed (principal); L97.822 Non-pressure chronic ulcer of other part of left lower leg with fat layer exposed; I73.9 Peripheral vascular disease, unspecified; I87.2 Venous insufficiency (chronic) (peripheral); R60.0 Localized edema | CPT/HCPCS: A9270 ==

== ENCOUNTER 2021-04-16 01:19 | Day surgery (SDC) | payer MEDICARE, OTHER | END 2021-04-16 23:02 | disposition home or self-care (01) | LOC: WOUND 01:19 | DX: L97.212 Non-pressure chronic ulcer of right calf with fat layer exposed (principal); L97.822 Non-pressure chronic ulcer of other part of left lower leg with fat layer exposed; I73.9 Peripheral vascular disease, unspecified; I87.2 Venous insufficiency (chronic) (peripheral); R60.0 Localized edema; Z88.0 Allergy status to penicillin; Z88.6 Allergy status to analgesic agent ==

== ENCOUNTER 2021-04-23 03:15 | Day surgery (SDC) | payer MEDICARE, OTHER | END 2021-04-23 12:00 | disposition home or self-care (01) | LOC: WOUND 03:15 | DX: L97.212 Non-pressure chronic ulcer of right calf with fat layer exposed (principal); L97.822 Non-pressure chronic ulcer of other part of left lower leg with fat layer exposed; I73.9 Peripheral vascular disease, unspecified; I87.2 Venous insufficiency (chronic) (peripheral); R60.0 Localized edema ==

== ENCOUNTER 2021-04-30 04:47 | Day surgery (SDC) | payer MEDICARE, OTHER | END 2021-04-30 22:40 | disposition home or self-care (01) | LOC: WOUND 04:47 | DX: L97.212 Non-pressure chronic ulcer of right calf with fat layer exposed (principal); L97.822 Non-pressure chronic ulcer of other part of left lower leg with fat layer exposed; I73.9 Peripheral vascular disease, unspecified; I87.2 Venous insufficiency (chronic) (peripheral); R60.0 Localized edema | CPT/HCPCS: A9270; G0463 ==

== ENCOUNTER 2021-05-07 01:41 | Day surgery (SDC) | payer MEDICARE, OTHER | END 2021-05-07 22:51 | disposition home or self-care (01) | LOC: WOUND 01:41 | PROC: 2W1RX6Z Compression of Left Lower Leg using Pressure Dressing (ICD-10-PCS; principal; 2021-05-07) | PROC: 2W1QX6Z Compression of Right Lower Leg using Pressure Dressing (ICD-10-PCS; principal; 2021-05-07) | DX: L97.821 Non-pressure chronic ulcer of other part of left lower leg limited to breakdown of skin (principal); L97.811 Non-pressure chronic ulcer of other part of right lower leg limited to breakdown of skin; I87.2 Venous insufficiency (chronic) (peripheral); Z88.0 Allergy status to penicillin; Z88.8 Allergy status to other drugs, medicaments and biological substances ==

== ENCOUNTER 2021-05-21 03:25 | Day surgery (SDC) | payer MEDICARE, OTHER | END 2021-05-21 23:36 | disposition home or self-care (01) | LOC: WOUND 03:25 | DX: L97.512 Non-pressure chronic ulcer of other part of right foot with fat layer exposed (principal); I87.2 Venous insufficiency (chronic) (peripheral) | CPT/HCPCS: A9270 ==

== ENCOUNTER 2021-05-28 05:35 | Day surgery (SDC) | payer MEDICARE, OTHER | END 2021-05-28 22:42 | disposition home or self-care (01) | LOC: WOUND 05:35 | DX: L97.512 Non-pressure chronic ulcer of other part of right foot with fat layer exposed (principal); L97.822 Non-pressure chronic ulcer of other part of left lower leg with fat layer exposed; I87.2 Venous insufficiency (chronic) (peripheral); R60.0 Localized edema; M79.662 Pain in left lower leg | CPT/HCPCS: A9270 ==

== ENCOUNTER 2021-06-04 03:01 | Day surgery (SDC) | payer MEDICARE, OTHER | END 2021-06-04 22:45 | disposition home or self-care (01) | LOC: WOUND 03:01 | DX: L97.512 Non-pressure chronic ulcer of other part of right foot with fat layer exposed (principal); L97.822 Non-pressure chronic ulcer of other part of left lower leg with fat layer exposed; L97.811 Non-pressure chronic ulcer of other part of right lower leg limited to breakdown of skin; I87.2 Venous insufficiency (chronic) (peripheral); R60.0 Localized edema ==

== ENCOUNTER 2021-06-07 01:49 | Day surgery (SDC) | payer MEDICARE, OTHER | END 2021-06-07 23:17 | disposition home or self-care (01) | LOC: WOUND 01:49 | DX: L97.512 Non-pressure chronic ulcer of other part of right foot with fat layer exposed (principal); L97.829 Non-pressure chronic ulcer of other part of left lower leg with unspecified severity; S90.414A Abrasion, right lesser toe(s), initial encounter; X58.XXXA Exposure to other specified factors, initial encounter ==

== ENCOUNTER 2021-06-11 05:50 | Day surgery (SDC) | payer MEDICARE, OTHER | END 2021-06-11 22:47 | disposition home or self-care (01) | LOC: WOUND 05:50 | DX: L97.811 Non-pressure chronic ulcer of other part of right lower leg limited to breakdown of skin (principal); L97.821 Non-pressure chronic ulcer of other part of left lower leg limited to breakdown of skin; L97.512 Non-pressure chronic ulcer of other part of right foot with fat layer exposed; I87.2 Venous insufficiency (chronic) (peripheral); R60.0 Localized edema; M79.662 Pain in left lower leg ==

== ENCOUNTER 2021-06-18 00:50 | Day surgery (SDC) | payer MEDICARE, OTHER | END 2021-06-18 23:06 | disposition home or self-care (01) | LOC: WOUND 00:50 | DX: L89.893 Pressure ulcer of other site, stage 3 (principal); L97.811 Non-pressure chronic ulcer of other part of right lower leg limited to breakdown of skin; L97.512 Non-pressure chronic ulcer of other part of right foot with fat layer exposed; I87.2 Venous insufficiency (chronic) (peripheral); S91.104S Unspecified open wound of right lesser toe(s) without damage to nail, sequela; X58.XXXS Exposure to other specified factors, sequela | CPT/HCPCS: G0463 ==

== ENCOUNTER 2021-06-25 09:45 | Day surgery (SDC) | payer MEDICARE, OTHER ==
[~2021-06-25] VITALS: Ht 182.9 cm; Wt 93.0 kg
[2021-06-25] MEDS ORDERED: HYDCHL25 PO (10:11)
--- NOTE | 2021-06-25 15:44 | NUR ---
PT DRESSES SELF WITH ASSISTANCE. R PEDAL SITES REMAIN CLEAR. NO BLEEDING OR HEMATOMA NOTED. VSS. PT VERBALIZES UNDERSTANDING WRITTEN AND VERBAL INSTRUCTIONS. IV DC'D. CATH INTACT. PRESSURE DSG APPLIED. PT DC TO HOME VIA WC BY [facility].
== END 2021-06-25 16:02 | disposition home or self-care (01) ==
LOC: MHTC 09:45
DX: I70.213 Atherosclerosis of native arteries of extremities with intermittent claudication, bilateral legs (principal); I48.91 Unspecified atrial fibrillation; I10 Essential (primary) hypertension; E78.5 Hyperlipidemia, unspecified; E03.9 Hypothyroidism, unspecified; G47.30 Sleep apnea, unspecified; Z87.891 Personal history of nicotine dependence; Z88.0 Allergy status to penicillin; Z88.1 Allergy status to other antibiotic agents; Z88.2 Allergy status to sulfonamides; Z79.01 Long term (current) use of anticoagulants; Z79.899 Other long term (current) drug therapy
CPT/HCPCS: 37229; 37232; 37233; 75625; 75716; 76937; 99152; 99153; C1714; C1725; C1769; C1887; C1894; J1200; J1644; J2250; J3010; J7030; J7050; Q9967

== ENCOUNTER 2021-07-09 02:11 | Day surgery (SDC) | payer MEDICARE, OTHER | END 2021-07-09 23:12 | disposition home or self-care (01) | LOC: WOUND 02:11 | DX: L97.512 Non-pressure chronic ulcer of other part of right foot with fat layer exposed (principal); L97.811 Non-pressure chronic ulcer of other part of right lower leg limited to breakdown of skin; I87.2 Venous insufficiency (chronic) (peripheral); S91.104S Unspecified open wound of right lesser toe(s) without damage to nail, sequela; X58.XXXS Exposure to other specified factors, sequela | CPT/HCPCS: G0463 ==

== ENCOUNTER 2021-07-23 05:48 | Day surgery (SDC) | payer MEDICARE, OTHER | END 2021-07-23 22:37 | disposition home or self-care (01) | LOC: WOUND 05:48 | DX: I87.2 Venous insufficiency (chronic) (peripheral) (principal); S91.104S Unspecified open wound of right lesser toe(s) without damage to nail, sequela; Z87.2 Personal history of diseases of the skin and subcutaneous tissue | CPT/HCPCS: G0463 ==

== ENCOUNTER 2022-07-02 07:13 | Emergency (ER) | payer MEDICARE, OTHER ==
[~2022-07-02] VITALS: Ht 170.2 cm; Wt 71.2 kg
[2022-07-02 08:13] LABS: International Normalized Ratio 2.85; Prothrombin Time Results 27.9 Sec (9.7-11.5)
== END 2022-07-02 10:57 | disposition home or self-care (01) ==
LOC: ER 07:13
PROVIDERS: Emergency Medicine
DX: R04.0 Epistaxis (principal); I11.0 Hypertensive heart disease with heart failure; I50.32 Chronic diastolic (congestive) heart failure; E03.9 Hypothyroidism, unspecified; Z88.0 Allergy status to penicillin; Z88.8 Allergy status to other drugs, medicaments and biological substances; Z79.01 Long term (current) use of anticoagulants; Z79.890 Hormone replacement therapy; Z79.899 Other long term (current) drug therapy
CPT/HCPCS: 36415; 85610; 85730; A9270

== ENCOUNTER 2022-07-25 11:57 | Inpatient (IN) | payer MEDICARE, OTHER ==
[~2022-07-25] VITALS: Ht 180.3 cm; Wt 94.3 kg
[2022-07-25 13:05] LABS: BASOPHILS ABSOLUTE AUTO 0.02 K/mm3 (0.00-0.23); BASOPHILS PERCENT AUTO 0 % (0-2); EOSINOPHILS ABSOLUTE AUTO 0.08 K/mm3 (0.00-0.68); EOSINOPHILS PERCENT AUTO 2 % (0-6); Hematocrit 20.7 % (37.0-53.0); Hemoglobin 6.2 g/dL (13.5-17.5); IMMATURE GRAN ABSOLUTE AUTO 0.01 K/mm3 (0.00-0.10); IMMATURE GRAN PERCENT AUTO 0 % (0-1); LYMPHOCYTES ABSOLUTE AUTO 0.64 K/mm3 (0.84-5.20); LYMPHOCYTES PERCENT AUTO 14 % (21-46); MONOCYTES ABSOLUTE AUTO 0.48 K/mm3 (0.16-1.47); MONOCYTES PERCENT AUTO 11 % (4-13); Mean Corpuscular HGB 23.7 pg (26.0-34.0); Mean Corpuscular Volume 79 fL (80-100); Mean Platelet Volume 10.2 fL (9.1-12.4); NEUTROPHILS ABSOLUTE AUTO 3.36 K/mm3 (1.96-9.15); NEUTROPHILS PERCENT AUTO 73 % (41-73); Platelet Count 206 K/mm3 (150-400); RDW Coefficient Variation 15.4 % (11.7-14.2); RDW Standard Deviation 44.1 fL (35.1-46.3); Red Blood Cell Count 2.62 M/mm3 (4.30-5.90); White Blood Cell Count 4.59 K/mm3 (4.00-11.30)
[2022-07-25 13:31] LABS: Albumin, Blood 3.1 g/dL (3.4-5.0); Albumin/Globulin Ratio 0.8 (0.8-1.8); Bilirubin, Total 0.4 mg/dL (0.1-1.0); Bun/Creatinine Ratio 22.4 (12.0-20.0); Calcium, Blood 8.6 mg/dL (8.5-10.1); Creatinine, Blood 1.56 mg/dL (0.60-1.20); Globulin, Blood 3.7 g/dL (2.2-4.0); Potassium, Blood 4.5 mmol/L (3.5-5.5); Total Protein, Blood 6.8 g/dL (6.4-8.2)
[2022-07-25 13:42] LABS: Prothrombin Time Results 38.9 Sec (9.7-11.5)
[2022-07-25 13:58] LABS: International Normalized Ratio 4.06
[2022-07-25 14:53] LABS: Percent Saturation 6.1 % (20.0-50.0)
--- NOTE | 2022-07-25 19:01 | NUR ---
Patient admitted for anemia, arrived to room at 1645. 1 unit PRBCs tranfusing, rate 75mL/hr when arrived to room. Vitals stable, increased rate to 125. Transfusion documentation sheet filled out. Patient AOx4, refused weight at this time. Stated he could not lay down in bed, and needed to remain sitting up. Handoff report given to MARIA LUZ BRADLEY.
--- NOTE | 2022-07-25 20:43 | NUR ---
PRBC ADMINISTRATION OF 1 UNIT COMPLETED AT 2044. NO ADVERSE REACTIONS NOTED. ADMINISTRATION PAPERWORK COMPLETED AND PUT IN PATIENTS CHART. VITALS STABLE
[2022-07-25 21:31] LABS: Hemoglobin 7.2 g/dL (13.5-17.5)
--- NOTE | 2022-07-26 04:20 | NUR ---
PATIENT DNR, ALERT AND ORIENTED, HGB 7.2 AFTER ONE UNIT OF PRBC INFUSED AT 2044 LAST NIGHT, PATIENT USES WHEELCHAIR AT HOME AND SLEEPS IN A RECLINER CHAIR, PATIENT IS A TWO ASSIST DUE TO WEAKNESS, SCIATIC, AND HIP PAIN, ROOM AIR, NO TELE BUT HX OF AFIB, RIGHT AC SALINE LOCKED, PATIENT IS VERY PATICULAR AND HARD TO SATISFY, ALLOWED PATIENT TO SLEEP IN RECLINER DUE TO NEUROPATHY, LARGE BM 07/25/22. NO EVENTS OVERNIGHT
[2022-07-26 05:07] LABS: BASOPHILS ABSOLUTE AUTO 0.02 K/mm3 (0.00-0.23); BASOPHILS PERCENT AUTO 0 % (0-2); EOSINOPHILS ABSOLUTE AUTO 0.09 K/mm3 (0.00-0.68); EOSINOPHILS PERCENT AUTO 2 % (0-6); Hematocrit 22.4 % (37.0-53.0); IMMATURE GRAN ABSOLUTE AUTO 0.01 K/mm3 (0.00-0.10); IMMATURE GRAN PERCENT AUTO 0 % (0-1); LYMPHOCYTES ABSOLUTE AUTO 0.64 K/mm3 (0.84-5.20); LYMPHOCYTES PERCENT AUTO 14 % (21-46); MONOCYTES ABSOLUTE AUTO 0.54 K/mm3 (0.16-1.47); MONOCYTES PERCENT AUTO 12 % (4-13); Mean Corpuscular HGB 24.6 pg (26.0-34.0); Mean Corpuscular HGB Conc 31.3 g/dL (31.5-36.5); Mean Corpuscular Volume 79 fL (80-100); Mean Platelet Volume 9.5 fL (9.1-12.4); NEUTROPHILS ABSOLUTE AUTO 3.41 K/mm3 (1.96-9.15); NEUTROPHILS PERCENT AUTO 72 % (41-73); Platelet Count 183 K/mm3 (150-400); RDW Coefficient Variation 15.1 % (11.7-14.2); RDW Standard Deviation 43.4 fL (35.1-46.3); Red Blood Cell Count 2.84 M/mm3 (4.30-5.90); White Blood Cell Count 4.71 K/mm3 (4.00-11.30)
[2022-07-26 05:36] LABS: Bun/Creatinine Ratio 22.9 (12.0-20.0); Calcium, Blood 8.9 mg/dL (8.5-10.1); Creatinine, Blood 1.4 mg/dL (0.60-1.20); Potassium, Blood 4.2 mmol/L (3.5-5.5)
[2022-07-26 11:02] LABS: Hematocrit 21.7 % (37.0-53.0); Hemoglobin 6.8 g/dL (13.5-17.5)
--- NOTE | 2022-07-26 18:08 | NUR ---
SHIFT SUMMARY PT RESTING QUIETLY DURING SHIFT REPORT. WOKE EASILY FOR CARE. PT'S TO RM EARLY WITH QUESTIONS. DR CROEAS AND DR GOMES BOTH IN TO SEE PT AND ANS QUESTIONS UNTIL COMPLETE, DISCUSSING PLAN OF CARE. H&H AMRIT'D, RESULTS DECREASING ONLY SLIGHTLY FROM PREVIOUS; SEE CHART. ANOTHER UNIT OF PRBC'S ORDERED LATER IN THE DAY. PT TOLERATED WELL. PT UP TO BSC THIS EVENING HAVING ANOTHER VERY LRG BM. DR COREAS NOTIFIED FOR OCCULT STOOL SAMPLE; OBTAINED AND SENT. PT REMAINS SITTING IN CHAIR AT BS WATCHING TV. REPORTS FEELING BETTER AFTER UNIT OF BLOOD. ABLE TO BREATHE EASIER WELL. DENIES FURTHER NEEDS AT THIS TIME. CALL LT IN REACH.
[2022-07-26 18:19] LABS: Hemoglobin 7.8 g/dL (13.5-17.5)
--- NOTE | 2022-07-27 05:19 | NUR ---
SHIFT SUMMARY AOX4, PLEASANT, TRANSFERRED FROM CHAIR TO BED WITH MIN ASSIST BUT DID NOT ATTEMPT AMBULATING. VOIDS WITH URINAL INDEPENDENTLY. DID NOT EAT DINNER BUT DRANK 2 ENSURES DURING SHIFT. CONTINUE TO MONITOR H&H. NO EVENTS DURING SHIFT.
[2022-07-27 05:47] LABS: BASOPHILS ABSOLUTE AUTO 0.04 K/mm3 (0.00-0.23); BASOPHILS PERCENT AUTO 1 % (0-2); EOSINOPHILS ABSOLUTE AUTO 0.17 K/mm3 (0.00-0.68); EOSINOPHILS PERCENT AUTO 3 % (0-6); Hematocrit 25.3 % (37.0-53.0); Hemoglobin 7.8 g/dL (13.5-17.5); IMMATURE GRAN ABSOLUTE AUTO 0.02 K/mm3 (0.00-0.10); IMMATURE GRAN PERCENT AUTO 0 % (0-1); LYMPHOCYTES ABSOLUTE AUTO 0.86 K/mm3 (0.84-5.20); LYMPHOCYTES PERCENT AUTO 16 % (21-46); MONOCYTES ABSOLUTE AUTO 0.66 K/mm3 (0.16-1.47); MONOCYTES PERCENT AUTO 12 % (4-13); Mean Corpuscular HGB 24.6 pg (26.0-34.0); Mean Corpuscular HGB Conc 30.8 g/dL (31.5-36.5); Mean Corpuscular Volume 80 fL (80-100); Mean Platelet Volume 9.7 fL (9.1-12.4); NEUTROPHILS ABSOLUTE AUTO 3.77 K/mm3 (1.96-9.15); NEUTROPHILS PERCENT AUTO 68 % (41-73); Platelet Count 188 K/mm3 (150-400); RDW Coefficient Variation 15.4 % (11.7-14.2); RDW Standard Deviation 44.4 fL (35.1-46.3); Red Blood Cell Count 3.17 M/mm3 (4.30-5.90); White Blood Cell Count 5.52 K/mm3 (4.00-11.30)
[2022-07-27 06:13] LABS: Bun/Creatinine Ratio 21.3 (12.0-20.0); Calcium, Blood 8.7 mg/dL (8.5-10.1); Creatinine, Blood 1.36 mg/dL (0.60-1.20); Potassium, Blood 4.1 mmol/L (3.5-5.5)
[2022-07-27 11:26] LABS: Hematocrit 24.7 % (37.0-53.0); Hemoglobin 7.7 g/dL (13.5-17.5)
[2022-07-27 12:20] LABS: Stool Occult Blood Guaiac 1 Pos (Neg)
--- NOTE | 2022-07-27 19:16 | NUR ---
PT ALERT NO S/S OF ACUTE DISTRESS, SAFETY MEASURES IN PLACE. REPORT GIVEN TO ON COMING NURSE.
[2022-07-28 06:27] LABS: BASOPHILS ABSOLUTE AUTO 0.05 K/mm3 (0.00-0.23); BASOPHILS PERCENT AUTO 1 % (0-2); EOSINOPHILS PERCENT AUTO 4 % (0-6); Hematocrit 24.9 % (37.0-53.0); Hemoglobin 7.7 g/dL (13.5-17.5); IMMATURE GRAN ABSOLUTE AUTO 0.03 K/mm3 (0.00-0.10); IMMATURE GRAN PERCENT AUTO 1 % (0-1); LYMPHOCYTES ABSOLUTE AUTO 0.77 K/mm3 (0.84-5.20); LYMPHOCYTES PERCENT AUTO 14 % (21-46); MONOCYTES ABSOLUTE AUTO 0.63 K/mm3 (0.16-1.47); MONOCYTES PERCENT AUTO 12 % (4-13); Mean Corpuscular HGB 24.8 pg (26.0-34.0); Mean Corpuscular HGB Conc 30.9 g/dL (31.5-36.5); Mean Corpuscular Volume 80 fL (80-100); Mean Platelet Volume 9.3 fL (9.1-12.4); NEUTROPHILS ABSOLUTE AUTO 3.68 K/mm3 (1.96-9.15); NEUTROPHILS PERCENT AUTO 69 % (41-73); Platelet Count 176 K/mm3 (150-400); RDW Coefficient Variation 15.9 % (11.7-14.2); RDW Standard Deviation 45.1 fL (35.1-46.3); Red Blood Cell Count 3.11 M/mm3 (4.30-5.90); White Blood Cell Count 5.36 K/mm3 (4.00-11.30)
--- NOTE | 2022-07-28 06:32 | NUR ---
PATIENT ALERT AND ORIENTED, ROOM AIR, NO TELE, URINAL, SLEPT IN CHAIR, REFUSED GABAPENTIN LAST NIGHT AND THEN COMPLAINED OF NERVE PAIN LATER IN SHIFT, GAVE TYLENOL, I EDUCATED ON MEDICATION AND PROPER WAY TO TAKE, PATIENT DENIES NEED FOR ANY EDUCATION, 20 RAC SL, HH LOW NA+ DIET, HGB STABLE THIS AM. PLAN FOR THOROCENTESIS TODAY. NO EVENTS OVERNIGHT
[2022-07-28 06:40] LABS: International Normalized Ratio 1.16; Prothrombin Time Results 12.1 Sec (9.7-11.5)
[2022-07-28 06:54] LABS: Albumin, Blood 2.8 g/dL (3.4-5.0); Albumin/Globulin Ratio 0.8 (0.8-1.8); Bilirubin, Total 0.6 mg/dL (0.1-1.0); Calcium, Blood 8.6 mg/dL (8.5-10.1); Creatinine, Blood 1.27 mg/dL (0.60-1.20); Globulin, Blood 3.7 g/dL (2.2-4.0); Total Protein, Blood 6.5 g/dL (6.4-8.2)
[2022-07-28 10:54] LABS: Glucose, Body Fluid 65 mg/dL; Lactate Dehydrogenase, Body Fl 208 U/L
[2022-07-28 11:02] LABS: Albumin, Body Fluid 2.3 g/dL; Automated BF RBC Count 0.981 M/mm3 (0-0); Automated BF WBC Count 1.297 K/mm3 (0-999); Protein, Body Fluid 4.5 g/dL; Triglycerides, Body Fluid 21 mg/dL
[2022-07-28 11:23] LABS: pH, Body Fluid 8.2
[2022-07-28 11:50] LABS: Body Fluid WBC Count 1297 /mm3 (0-999); RBC Count, Body Fluid 981000 /mm3 (0-0)
[2022-07-28 13:05] LABS: Appearance, Body Fluid Bloody (Clear); Color, Body Fluid Red (None-Yellow); Total Cell Count, Body Fluid 100
--- NOTE | 2022-07-28 19:23 | NUR ---
PT ALERT NO S/S OF ACUTE DISTRESS. SAFETY MEASURES IN PLACE REPORT GIVEN TO ON COMING NURSE.
--- NOTE | 2022-07-29 04:09 | NUR ---
TIME BUYER SUMMARY A&OX4. PATIENT EFFECTIVELY COMMUNICATES NEEDS. VSS. RR EVEN AND UNLABORED ON RA. PAIN ASSESSED AND MEDICATED PER EMAR. PATIENT REQUESTED TO SLEEP IN RECLINING CHAIR. NO ACUTE EVENTS THROUGHOUT THE NIGHT. BED LOW AND LOCKED. CALL LIGHT WITHIN REACH. THIS RN WILL CONTINUE TO MONITOR.
[2022-07-29 05:29] LABS: Hematocrit 25.1 % (37.0-53.0); Hemoglobin 7.7 g/dL (13.5-17.5)
[2022-07-29 05:48] LABS: Albumin, Blood 2.7 g/dL (3.4-5.0); Anion Gap 6 mmol/L (6-16); Blood Urea Nitrogen 26 mg/dL (8-24); Bun/Creatinine Ratio 22.8 (12.0-20.0); CO2, Blood 25 mmol/L (21-32); Calcium, Blood 8.6 mg/dL (8.5-10.1); Chloride, Blood 105 mmol/L (98-108); Creatinine, Blood 1.14 mg/dL (0.60-1.20); Glomerular Filtration Rate 65 (60-); Glucose, Blood 98 mg/dL (70-99); Phosphorus, Blood 3.5 mg/dL (2.5-4.9); Potassium, Blood 4.1 mmol/L (3.5-5.5); Sodium, Blood 136 mmol/L (136-145)
--- NOTE | 2022-07-29 19:09 | NUR ---
PT ALERT NO S/S OF ACUTE DISTRESS, SAFETY MEASURES IN PLACE. REPORT GIVEN TO ON COMING NURSE.
--- NOTE | 2022-07-30 03:59 | NUR ---
CARTON MAKING MACHINIST SUMMARY A&OX4. PATIENT EFFECTIVELY COMMUNICATES NEEDS. VSS. RR EVEN AND UNLABORED ON RA. NO ACUTE EVENTS THROUGHOUT THE NIGHT. PATIENT OBSERVED SLEEPING WELL IN RECLINING CHAIR. CALL LIGHT WITHIN REACH. CHAIR LOCKED. THIS RN WILL CONTINUE TO MONITOR.
[2022-07-30 05:28] LABS: Hematocrit 25.9 % (37.0-53.0)
[2022-07-30 05:56] LABS: Albumin, Blood 2.7 g/dL (3.4-5.0); Anion Gap 5 mmol/L (6-16); Blood Urea Nitrogen 30 mg/dL (8-24); Bun/Creatinine Ratio 25.2 (12.0-20.0); CO2, Blood 27 mmol/L (21-32); Calcium, Blood 8.7 mg/dL (8.5-10.1); Chloride, Blood 105 mmol/L (98-108); Creatinine, Blood 1.19 mg/dL (0.60-1.20); Glomerular Filtration Rate 62 (60-); Glucose, Blood 94 mg/dL (70-99); Phosphorus, Blood 3.3 mg/dL (2.5-4.9); Potassium, Blood 4.3 mmol/L (3.5-5.5); Sodium, Blood 137 mmol/L (136-145)
[2022-07-30] MEDS ORDERED: Acetaminophen650 M1 PO (12:41)
[2022-07-30] MEDS ORDERED: HYDR25SUP PR (12:42)
[2022-07-30] MEDS ORDERED: Colace100 MG PO (12:42)
[2022-07-30] MEDS ORDERED: MIRALAX17 GM PO (12:43)
[2022-07-30] MEDS ORDERED: XARELTO20 MG PO (12:43)
[2022-07-30] MEDS ORDERED: FERSU300 PO (12:43)
[2022-08-02] MEDS ORDERED: ANUCORT-HC25 M1 PR (23:56)
== END 2022-07-30 13:19 | disposition home or self-care (01) | DRG 812 ==
LOC: ER 11:57 → MEDS 17:08
PROVIDERS: Family Medicine; Family Medicine Adult Medicine; Physician Assistant; Student in an Organized Health Care Education/Training Program; ADMIT Hospitalist
PROC: 30233N1 Transfusion of Nonautologous Red Blood Cells into Peripheral Vein, Percutaneous Approach (ICD-10-PCS; principal; 2022-07-27)
PROC: 30283B1 Transfusion of Nonautologous 4-Factor Prothrombin Complex Concentrate into Vein, Percutaneous Approach (ICD-10-PCS; 2022-07-27)
PROC: 0W9B30Z Drainage of Left Pleural Cavity with Drainage Device, Percutaneous Approach (ICD-10-PCS; 2022-07-28)
PROC: 30233N1 Transfusion of Nonautologous Red Blood Cells into Peripheral Vein, Percutaneous Approach (ICD-10-PCS; 2022-07-28)
DX: D50.9 Iron deficiency anemia, unspecified (principal); I48.20 Chronic atrial fibrillation, unspecified; I50.32 Chronic diastolic (congestive) heart failure; J91.8 Pleural effusion in other conditions classified elsewhere; N17.9 Acute kidney failure, unspecified; K64.9 Unspecified hemorrhoids; Z28.21 Immunization not carried out because of patient refusal; Z66 Do not resuscitate; E03.9 Hypothyroidism, unspecified; I27.20 Pulmonary hypertension, unspecified; K59.00 Constipation, unspecified; N40.0 Benign prostatic hyperplasia without lower urinary tract symptoms; I11.0 Hypertensive heart disease with heart failure; G62.9 Polyneuropathy, unspecified; Z96.641 Presence of right artificial hip joint; Z90.89 Acquired absence of other organs; Z98.890 Other specified postprocedural states; Z87.891 Personal history of nicotine dependence; Z88.0 Allergy status to penicillin; Z88.8 Allergy status to other drugs, medicaments and biological substances; Z79.01 Long term (current) use of anticoagulants; Z79.899 Other long term (current) drug therapy
CPT/HCPCS: 32555; 36415; 70450; 71045; 80048; 80053; 80069; 82042; 82270; 82272; 82607; 82728; 82746; 82945; 83540; 83550; 83615; 83880; 83986; 84157; 84478; 85014; 85018; 85025; 85610; 86850; 86900; 86901; 86923; 87070; 87205; 88108; 88305; 89051; 92523; 93005; 93010; 93306; 96365; 96368; 99285-25; A9270; G0378; J2916; J3430; J7030; J7050; J7168; P9016

== ENCOUNTER 2023-01-13 10:56 | Inpatient (IN) | payer MEDICARE, OTHER ==
[~2023-01-13] VITALS: Ht 185.4 cm; Wt 90.0 kg
[~2023-01-13 10:56] MED LIST changes: +ANUCORT-HC25 M1 PR; +Acetaminophen650 M1 PO; +Colace100 MG PO; +FERSU300 PO; +HYDR25SUP PR; +MIRALAX17 GM PO; +XARELTO20 MG PO
[2023-01-13 11:59] LABS: BASOPHILS ABSOLUTE AUTO 0.03 K/mm3 (0.00-0.23); BASOPHILS PERCENT AUTO 1 % (0-2); EOSINOPHILS ABSOLUTE AUTO 0.06 K/mm3 (0.00-0.68); EOSINOPHILS PERCENT AUTO 1 % (0-6); Hematocrit 32.9 % (37.0-53.0); IMMATURE GRAN ABSOLUTE AUTO 0.01 K/mm3 (0.00-0.10); IMMATURE GRAN PERCENT AUTO 0 % (0-1); LYMPHOCYTES ABSOLUTE AUTO 0.48 K/mm3 (0.84-5.20); LYMPHOCYTES PERCENT AUTO 10 % (21-46); MONOCYTES ABSOLUTE AUTO 0.49 K/mm3 (0.16-1.47); MONOCYTES PERCENT AUTO 10 % (4-13); Mean Corpuscular HGB 30.5 pg (26.0-34.0); Mean Corpuscular HGB Conc 33.4 g/dL (31.5-36.5); Mean Corpuscular Volume 91 fL (80-100); Mean Platelet Volume 9.5 fL (9.1-12.4); NEUTROPHILS ABSOLUTE AUTO 3.62 K/mm3 (1.96-9.15); NEUTROPHILS PERCENT AUTO 77 % (41-73); Platelet Count 153 K/mm3 (150-400); RDW Coefficient Variation 13.8 % (11.7-14.2); RDW Standard Deviation 46.3 fL (35.1-46.3); Red Blood Cell Count 3.61 M/mm3 (4.30-5.90); White Blood Cell Count 4.69 K/mm3 (4.00-11.30)
[2023-01-13 12:23] LABS: Albumin, Blood 3.3 g/dL (3.4-5.0); Albumin/Globulin Ratio 0.9 (0.8-1.8); Bilirubin, Total 0.8 mg/dL (0.1-1.0); Bun/Creatinine Ratio 25.8 (12.0-20.0); Calcium, Blood 8.7 mg/dL (8.5-10.1); Creatinine, Blood 1.2 mg/dL (0.60-1.20); Globulin, Blood 3.6 g/dL (2.2-4.0); Potassium, Blood 4.5 mmol/L (3.5-5.5); Total Protein, Blood 6.9 g/dL (6.4-8.2)
[2023-01-13 14:02] LABS: International Normalized Ratio 1.16; Prothrombin Time Results 12.1 Sec (9.7-11.5)
[2023-01-13 17:21] VITALS: BP 152/92
[2023-01-13] MEDS ORDERED: BUME1 PO (17:42)
[2023-01-13] MEDS ORDERED: SPIRONOLACTONE25 MG PO (17:45)
--- NOTE | 2023-01-13 19:20 | NUR ---
ADMISSION/SHIFT SUMMARY: PT IS NEW ADMIT, ARRIVES FROM ER AT APPROX 1715, IS A&Ox4, ANSWERING QUESTIONS APPROPRIATELY, COOPERATIVE W/CARE. PT REPORTS W/C AT BASELINE W/ABILITY TO STAND/PIVOT. PT TRANSFERS SELF F/GURNEY TO BED W/MINIMAL ASSISTANCE. O2 SATS >93% ON 2 L/MIN NC, PT REPORTS DIFFICULTY TAKING DEEP BREATH. AFIB ON MONITOR W/RUNS OF PVCs, RATE 80s-90s, PT DENIES CP. PT REPORTS LAST DOSE OF XARELTO WAS 01/12/23 AT APPROX 2000. REPORT GIVEN TO KIRK CURRY TO ASSUME CARE OF PT.
[2023-01-13 20:44] VITALS: BP 146/71
--- NOTE | 2023-01-13 21:24 | NUR ---
ASSUMPTION OF CARE/ASSESSMENT: ASSUMED CARE OF PT AT 1900. PT IN ROOM AND SITTING IN RECLINER AT THIS TIME. PT STATES THAT HE SLEEPS IN RECLINER AT BASELINE AND WOULD LIKE TO BE IN THE RECLINER FOR THE REMAINDER OF THE NIGHT. PT A&O X 4, FOLLOWING DIRECTIONS AND USING CALL LIGHT APPROPRIATELY. PT ON NC @ 2LPM, SPO2 94<; LUNG SOUNDS ARE CLEAR IN R. LOBE WITH DIM BASE, L. LOBE IS DIM THROUGHOUT. PT STATES SOB AND DYSPNEA WITH EXERTION. PT AFIB ON MONITOR WITH FREQUENT RUNS OF PVC'S; HR 80-110 AND SBP 140'S, PT DENIES CHEST PAIN AT THIS TIME. PT TOLERATING PO INTAKE; ABD ROUND, SOFT AND NON-TENDER; HYPOACTIVE BOWEL SOUNDS IN ALL QUADRANTS. PT HAS PAIN IN BLE R/T CHRONIC NEUROPATHY; MEDICATED PER EMAR. PPP X 4, SKIN WARM, SCATTERED ABRASION NOTED. PT HAS CONDOM CATH IN PLACE THAT IS DRAINING TO GRAVITY; CLEAR, DARK YELLOW URINE. PT CONTINENT AT BASELINE BUT CONDOM CATH PLACED TO HELP DECREASE PT EXERTION. BED LOWERED, CALL LIGHT IN REACH, WILL CONTINUE TO MONITOR.
[2023-01-13 23:50] VITALS: BP 134/97
[2023-01-14 04:27] LABS: BASOPHILS ABSOLUTE AUTO 0.04 K/mm3 (0.00-0.23); BASOPHILS PERCENT AUTO 1 % (0-2); EOSINOPHILS ABSOLUTE AUTO 0.08 K/mm3 (0.00-0.68); EOSINOPHILS PERCENT AUTO 2 % (0-6); Hematocrit 31.3 % (37.0-53.0); Hemoglobin 10.2 g/dL (13.5-17.5); IMMATURE GRAN ABSOLUTE AUTO 0.01 K/mm3 (0.00-0.10); IMMATURE GRAN PERCENT AUTO 0 % (0-1); LYMPHOCYTES ABSOLUTE AUTO 0.62 K/mm3 (0.84-5.20); LYMPHOCYTES PERCENT AUTO 15 % (21-46); MONOCYTES ABSOLUTE AUTO 0.45 K/mm3 (0.16-1.47); MONOCYTES PERCENT AUTO 11 % (4-13); Mean Corpuscular HGB 29.6 pg (26.0-34.0); Mean Corpuscular HGB Conc 32.6 g/dL (31.5-36.5); Mean Corpuscular Volume 91 fL (80-100); Mean Platelet Volume 9.5 fL (9.1-12.4); NEUTROPHILS ABSOLUTE AUTO 2.89 K/mm3 (1.96-9.15); NEUTROPHILS PERCENT AUTO 71 % (41-73); Platelet Count 153 K/mm3 (150-400); RDW Coefficient Variation 13.7 % (11.7-14.2); RDW Standard Deviation 44.9 fL (35.1-46.3); Red Blood Cell Count 3.45 M/mm3 (4.30-5.90); White Blood Cell Count 4.09 K/mm3 (4.00-11.30)
[2023-01-14 04:42] VITALS: BP 147/80
[2023-01-14 04:53] LABS: Bun/Creatinine Ratio 27.9 (12.0-20.0); Calcium, Blood 8.2 mg/dL (8.5-10.1); Creatinine, Blood 1.22 mg/dL (0.60-1.20); Magnesium, Blood 2.1 mg/dL (1.6-2.4); Potassium, Blood 4.2 mmol/L (3.5-5.5)
--- NOTE | 2023-01-14 05:18 | NUR ---
SHIFT SUMMARY: NO ACUTE CHANGES THROUGHOUT THE NIGHT; VSS THROUGHOUT THE SHIFT. PT WAS ONLY ABLE TO SLEEP A COUPLE OF HOURS. PT USING CALL LIGHT APPROPRIATELY. PT PAIN MANAGED WELL WITH PRN NORCO. PT HAD AROUND 1350 MLS URINE OUTPUT THIS SHIFT, AND HAD NO BOWEL MOVEMENT. WILL CONTINUE TO MONITOR UNTIL ONCOMING RN ARRIVES.
--- NOTE | 2023-01-14 08:00 | NUR ---
Pt asked if he has any sources of ignition. He denies. STates that he does not smoke. Pt educated re: ignition sources and risk of injury to himself and others while oxygen is in use. Also educated pt that no smoking nor any sources spark nor flame are allowed to be used on the campus of the hospital.Pt verbalized understanding, and voices willingness to comply.
[2023-01-14 08:03] VITALS: BP 126/83
--- NOTE | 2023-01-14 08:08 | NUR ---
Pt is sitting up in recliner, eating breakfast. STates that his breathing is a little easier than yesterday. SpO2 86% on room air. STates last dose of xarelto was Thursday evening about 8 pm.
--- NOTE | 2023-01-14 09:30 | NUR ---
Pt sitting up in the chair on initial assessment this morning. He is expressing overall negative outlook on his situation and ongoing events. Told the imaging transporter on the way to his thoracentesis that he "wanted a shot to just end it all". Palliative care is following. Pt ate breakfast earlier with a good appetite, and was happy that he got to have chocolate milk. States that his won't let him have chocolate at home "because she isn't allowed to have it, then neither am I". States painful chronic neuropathy of his lower extremities. Black compression socks are on, covered with beige foam wraps secured with black velcro straps. Pt states that they were used by the wound clinic during the course of a year for wound healing. He will not let me remove them for assessment; states that a special pressure gauge is needed to put them on. Denies any wounds currently except for the small abraions which are on his knees from recent fall at home. Denies hitting his head during the fall; states that he only his his legs and arms. States is his caregiver at home. Pt is in imaging department for USS guided thoracentesis at this time. Spoke with Dr. Neville during rounds regarding pt's very frequent PVCs. Electrolytes are WNL. Pt is in chronic afib. Also discussed pt's fluid intake; pt is now on a fluid restriction of 1200cc/24 hours hours.
[2023-01-14 10:05] LABS: Percent Saturation 10.6 % (20.0-50.0)
[2023-01-14 11:00] VITALS: BP 118/79
--- NOTE | 2023-01-14 11:03 | NUR ---
States that he is having pain, but improving in his thoracic area. STates he feels better after recovering from the thoracentesis, and can take deeper breaths now. Neuropathy pain rated 7/10 left leg, 5/10 right leg. Sciatica pain is also intermittent. STates pain can increase to 10/10 suddenly. He refused any pain medication because he is worried about being hooked on it. STates that the best pain medication is "the black button"; clarifies that IV morphine is the best pain med, but he doesn't want the Biddle unless he needs it to help him sleep tonight.
--- NOTE | 2023-01-14 13:47 | NUR ---
Spoke with Pt's Primary RN Ramandeep and discussed case. Joint visit with Chaplain Ellis and this PC RN. Pt sitting in recliner chair upon arrival. Pt reports living at home with his of over 50 years and has no children together. He reports having a daughter from a previous marriage who lives in [place]. He reports having a brother who also lives out of state. Pt reports being agnostic but has requested local flatbed driver visit. He reports his has mandaeism belief. 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 He reports his quality of life has greatly diminished over the years and states he does not care if he lives or dies. Pt reports being chair bound and his is his caregiver. He reports no support from family or friends. Continued therapeutic listening. Pt appears to be experiencing mild anger and bitterness regarding his quality of life. Engaged in brief and gentle education regarding advanced care planning. Educated on disease process including trajectory. Discussed the importance of planning for the future as disease progresses. Discussed goals of care with Pt being in agreement with current plan of care. Discussed options to consider if hospitalization ever becomes to burdensome and to discuss further with PCP. Ended visit to allow Chaplain Ellis to visit. Palliative Care will remain available
--- NOTE | 2023-01-14 15:30 | NUR ---
Spiritual care visit conducted. Patient is sitting on a chair and alert. He tells me that he is an Athiest and that is is a huge step for him to talk to a Navigating Officer. We immediately discuss his spiritual distress including what he already thinks of God, the Bible and human suffering. He shares about his medical issues and the pain he deals with daily as well as the humiliation he feels because of his limitations. He expresses his loss of hope and absolute frustration with the dailiness of life and why he has elected a DNR status. We explore sources of meaning, hope, love and spiritual direction. We discuss his Pily and her medical issues, her juvencio in God and their 55 yrs of marriage. We talk about what her feelings might be about him wanting to "give-up." I normalize his curiosity about God and the afterlife, reinforce helpful thoughts and motives and provide therapeutic listening, theological insights, gentle certified substance abuse counselor and prayer. Patient responded well and showed signs of reflection and being heard.
[2023-01-14 16:15] VITALS: BP 129/56
[2023-01-14 19:41] VITALS: BP 142/72
--- NOTE | 2023-01-14 19:41 | NUR ---
ASSESSMENT/ASSUMED CARE PT SITTING UP IN RECLINER. REPORTS PAIN TO BILAT LEGS 4/10, MED WITH TYLENOL PER PT REQUEST. CONDOM CATH CAME OFF, REPLACED CATH. LUNGS CLEAR ON ROOMAIR. PT STATED," I CAN BREATH SO MUCH BETTER NOW THAT THEY TOOK THAT FLUID OFF". PT DENIES SOB OR COUGH. HEART RATE IRREGULAR. BP STABLE. PT REFUSING TO HAVE COMPRESSION SOCKS OFF. BT+ ABD SOFT AND NONTENDER. DENIES N/V. IV TO LEFT AC ABLE TO DRAW BLOOD AND FLUSH WITHOUT DIFFICULTY. PT VOIDING CLEAR YELLOW URINE. HS MEDS GIVEN WITHOUT DIFFICULTY. PT STATES,"I HOPE I CAN GET SOME SLEEP TONIGHT" PT NOT WANTING TO GET INTO BED. STATES,"I SLEEP IN A RECLINER AT HOME".
[2023-01-14 23:35] VITALS: BP 150/80
[2023-01-15 03:39] VITALS: BP 138/59
[2023-01-15 04:02] LABS: BASOPHILS ABSOLUTE AUTO 0.03 K/mm3 (0.00-0.23); BASOPHILS PERCENT AUTO 1 % (0-2); EOSINOPHILS ABSOLUTE AUTO 0.07 K/mm3 (0.00-0.68); EOSINOPHILS PERCENT AUTO 2 % (0-6); Hematocrit 30.8 % (37.0-53.0); IMMATURE GRAN ABSOLUTE AUTO 0.01 K/mm3 (0.00-0.10); IMMATURE GRAN PERCENT AUTO 0 % (0-1); LYMPHOCYTES ABSOLUTE AUTO 0.71 K/mm3 (0.84-5.20); LYMPHOCYTES PERCENT AUTO 16 % (21-46); MONOCYTES ABSOLUTE AUTO 0.58 K/mm3 (0.16-1.47); MONOCYTES PERCENT AUTO 13 % (4-13); Mean Corpuscular HGB 29.4 pg (26.0-34.0); Mean Corpuscular HGB Conc 32.5 g/dL (31.5-36.5); Mean Corpuscular Volume 91 fL (80-100); Mean Platelet Volume 9.5 fL (9.1-12.4); NEUTROPHILS ABSOLUTE AUTO 2.94 K/mm3 (1.96-9.15); NEUTROPHILS PERCENT AUTO 68 % (41-73); Platelet Count 149 K/mm3 (150-400); RDW Coefficient Variation 13.5 % (11.7-14.2); RDW Standard Deviation 45.2 fL (35.1-46.3); White Blood Cell Count 4.34 K/mm3 (4.00-11.30)
[2023-01-15 04:26] LABS: Bun/Creatinine Ratio 25.7 (12.0-20.0); Calcium, Blood 8.2 mg/dL (8.5-10.1); Creatinine, Blood 1.36 mg/dL (0.60-1.20); Potassium, Blood 3.6 mmol/L (3.5-5.5)
--- NOTE | 2023-01-15 06:03 | NUR ---
SHIFT SUMMARY PT SAT UP IN RECLINER ALL NIGHT. MED WITH TYLENOL AND NORCO DURING THE NIGHT FOR LOWER EXT PAIN WITH GOOD RESULTS. PT AWAKE SITTING UP WATCHING TV AT THIS TIME. PT REPORTS IMPROVED BREATHING DURING THE NIGHT AFTER THE THORACENTESIS YESTERDAY. HEART RATE IRREGULAR- AFIB. PT HAD 3.05 SEC PAUSE DURING THE NIGHT AND A COUPLE OF RUNS FOR V TACH. REPORT TO ON COMING NURSE
[2023-01-15 08:39] VITALS: BP 153/73
--- NOTE | 2023-01-15 09:34 | NUR ---
Pt states that his breathing is so much better this morning. STates that he slept really well last night.
--- NOTE | 2023-01-15 10:32 | NUR ---
Dr. Neville here to see the patient.
--- NOTE | 2023-01-15 11:01 | NUR ---
Call to Cardiology office to request follow up appointment within 2 weeks, for heart failure follow up.
--- NOTE | 2023-01-15 11:15 | NUR ---
Received copy of POLST from [place] POLST [facility]. Pt's wishes on POLST are DNR and Limited Treatment. Delivered copy of POLST to medical records via hospital tube system.
[2023-01-15] MEDS ORDERED: METO50ER PO (11:33)
--- NOTE | 2023-01-15 12:37 | NUR ---
Reviewed discharge instructions in detail with the patient. IV removed. He is waiting for ambulance wheelchair transport to go home today.
--- NOTE | 2023-01-15 13:24 | NUR ---
Pt was assisted with dressing. Condom catheter was removed. All personal belongings, including his wallet and clothing, hat and necklace were in his possession. [facility] wheelchair transport came and took him from his room.
== END 2023-01-15 13:21 | disposition home or self-care (01) | DRG 291 ==
LOC: ER 10:56 → PCU 15:46
PROVIDERS: Emergency Medicine; ADMIT Internal Medicine
PROC: 0W9B3ZZ Drainage of Left Pleural Cavity, Percutaneous Approach (ICD-10-PCS; principal; 2023-01-14)
DX: I13.0 Hypertensive heart and chronic kidney disease with heart failure and stage 1 through stage 4 chronic kidney disease, or unspecified chronic kidney disease (principal); I50.33 Acute on chronic diastolic (congestive) heart failure; J96.01 Acute respiratory failure with hypoxia; I48.20 Chronic atrial fibrillation, unspecified; J91.8 Pleural effusion in other conditions classified elsewhere; N18.31 Chronic kidney disease, stage 3a; E03.9 Hypothyroidism, unspecified; N40.0 Benign prostatic hyperplasia without lower urinary tract symptoms; G62.9 Polyneuropathy, unspecified; I27.20 Pulmonary hypertension, unspecified; I49.3 Ventricular premature depolarization; M19.90 Unspecified osteoarthritis, unspecified site; D50.9 Iron deficiency anemia, unspecified; D63.1 Anemia in chronic kidney disease; Z88.0 Allergy status to penicillin; Z88.1 Allergy status to other antibiotic agents; Z88.8 Allergy status to other drugs, medicaments and biological substances; Z79.890 Hormone replacement therapy; Z79.01 Long term (current) use of anticoagulants; Z79.899 Other long term (current) drug therapy; Z90.89 Acquired absence of other organs; Z98.890 Other specified postprocedural states; Z87.891 Personal history of nicotine dependence
CPT/HCPCS: 32555; 36415; 71045; 71250; 80048; 80053; 82728; 83540; 83550; 83735; 83880; 84439; 84443; 84484; 85025; 85610; 93005; 93010; 94762; 99285-25; A9270; J2916